=== PATIENT | male | born 1945 | race Caucasian/White ===

== ENCOUNTER → 2018-03-22 | Outpatient (CLI) | payer OTHER ==
[~2018-03-22] MED LIST: ALBU90OI; ALBU90OI INH; ALL DAY ALLERGY10 M1; AMLO10 PO; ASPI81CH; ATEN50 PO; ATOR20; CALCA500CH; CYCL10 PO; FURO40 PO; INSDET100; INSUASPI SC; LEVFLO500 PO; LOPE2C; LOSA50; Lamictal100 MG PO; Levothyroxine200 MCG; MAGNESIUM250 MG; METF500; NITR.6SL SL; OMEP20ER; POTA20PAC; Prozac20 MG; VITAMIN D-32000 UNI1
[2018-03-22 17:46] LABS: BASOPHILS ABSOLUTE AUTO 0.04 K/mm3 (0.00-0.23); BASOPHILS PERCENT AUTO 0 % (0-2); EOSINOPHILS ABSOLUTE AUTO 0.37 K/mm3 (0.00-0.68); EOSINOPHILS PERCENT AUTO 4 % (0-6); Hematocrit 39.7 % (37.0-53.0); Hemoglobin 12.6 g/dL (13.5-17.5); IMMATURE GRAN ABSOLUTE AUTO 0.02 K/mm3 (0.00-0.10); IMMATURE GRAN PERCENT AUTO 0 % (0-1); LYMPHOCYTES ABSOLUTE AUTO 1.98 K/mm3 (0.84-5.20); LYMPHOCYTES PERCENT AUTO 22 % (21-46); MONOCYTES ABSOLUTE AUTO 0.71 K/mm3 (0.16-1.47); MONOCYTES PERCENT AUTO 8 % (4-13); Mean Corpuscular HGB 32.3 pg (26.0-34.0); Mean Corpuscular HGB Conc 31.7 g/dL (31.5-36.5); Mean Corpuscular Volume 102 fL (80-100); NEUTROPHILS ABSOLUTE AUTO 6.05 K/mm3 (1.96-9.15); NEUTROPHILS PERCENT AUTO 66 % (41-73); Platelet Count 232 K/mm3 (150-400); RDW Coefficient Variation 13.6 % (11.7-14.2); RDW Standard Deviation 51.1 fL (35.1-46.3); White Blood Cell Count 9.17 K/mm3 (4.00-11.30)
[2018-03-22 18:08] LABS: Albumin, Blood 3.6 g/dL (3.4-5.0); Albumin/Globulin Ratio 0.8 (0.8-1.8); Bilirubin, Total 0.4 mg/dL (0.1-1.0); Bun/Creatinine Ratio 22.4 (12.0-20.0); Creatinine, Blood 1.47 mg/dL (0.60-1.20); Globulin, Blood 4.3 g/dL (2.2-4.0); Potassium, Blood 4.8 mmol/L (3.5-5.5); Thyroid Stimulating Hormone 0.406 uIU/mL (0.360-4.800); Total Protein, Blood 7.9 g/dL (6.4-8.2)
== END | disposition home or self-care (01) ==
LOC: LAB 09:40 → LAB SHORT 09:40
PROVIDERS: Nurse Practitioner Family
DX: E03.9 Hypothyroidism, unspecified (principal); I10 Essential (primary) hypertension
CPT/HCPCS: 80053; 84443; 85025

== ENCOUNTER → 2019-03-08 | Outpatient (CLI) | payer OTHER ==
[2019-03-08 12:07] LABS: Hematocrit 38.6 % (37.0-53.0); Hemoglobin 12.4 g/dL (13.5-17.5)
[2019-03-08 12:27] LABS: Albumin, Blood 3.5 g/dL (3.4-5.0); Anion Gap 1 mmol/L (6-16); Blood Urea Nitrogen 42 mg/dL (8-24); Bun/Creatinine Ratio 17.6 (12.0-20.0); CO2, Blood 28 mmol/L (21-32); Calcium, Blood 8.6 mg/dL (8.5-10.1); Chloride, Blood 114 mmol/L (98-108); Creatinine, Blood 2.38 mg/dL (0.60-1.20); Glomerular Filtration Rate 29 (60-); Glucose, Blood 112 mg/dL (70-99); Phosphorus, Blood 4.2 mg/dL (2.5-4.9); Sodium, Blood 143 mmol/L (136-145)
[2019-03-08 13:18] LABS: White Blood Cells, Urine 0-2 /hpf (0-5)
[2019-03-08 13:19] LABS: Bacteria Not Seen /hpf; Red Blood Cells, Urine 0-2 /hpf (0-2); Squamous Epithelial Cells Rare /hpf (Few)
[2019-03-08 13:33] LABS: Creatinine, Urine Random 58.5 mg/dL (27.00-270.00); Protein, Urine Random 91.7 mg/dL (0.0-11.9)
== END | disposition home or self-care (01) ==
LOC: EDSTATUS 09:11 → LAB 11:20 → LAB SHORT 11:20
PROVIDERS: Internal Medicine
DX: N18.3 Chronic kidney disease, stage 3 (moderate) (principal)
CPT/HCPCS: 36415; 80069; 81015; 82306; 82570; 83970; 84156; 85014; 85018

== ENCOUNTER 2019-10-28 11:36 | Inpatient (IN) | payer OTHER ==
[~2019-10-28] VITALS: Ht 167.6 cm; Wt 73.0 kg
[~2019-10-28 11:36] MED LIST changes: -LOSA50; +LOSA50 PO; -Prozac20 MG; +Prozac20 MG PO
[2019-10-28 12:19] LABS: BASOPHILS ABSOLUTE AUTO 0.06 K/mm3 (0.00-0.23); BASOPHILS PERCENT AUTO 0 % (0-2); EOSINOPHILS ABSOLUTE AUTO 0.28 K/mm3 (0.00-0.68); EOSINOPHILS PERCENT AUTO 2 % (0-6); Hematocrit 44.1 % (37.0-53.0); Hemoglobin 14.4 g/dL (13.5-17.5); IMMATURE GRAN ABSOLUTE AUTO 0.04 K/mm3 (0.00-0.10); IMMATURE GRAN PERCENT AUTO 0 % (0-1); LYMPHOCYTES PERCENT AUTO 22 % (21-46); MONOCYTES ABSOLUTE AUTO 0.74 K/mm3 (0.16-1.47); MONOCYTES PERCENT AUTO 5 % (4-13); Mean Corpuscular HGB 32.7 pg (26.0-34.0); Mean Corpuscular HGB Conc 32.7 g/dL (31.5-36.5); Mean Corpuscular Volume 100 fL (80-100); Mean Platelet Volume 11.4 fL (9.1-12.4); NEUTROPHILS ABSOLUTE AUTO 10.29 K/mm3 (1.96-9.15); NEUTROPHILS PERCENT AUTO 70 % (41-73); Platelet Count 243 K/mm3 (150-400); RDW Coefficient Variation 13.7 % (11.7-14.2); RDW Standard Deviation 50.6 fL (35.1-46.3); White Blood Cell Count 14.71 K/mm3 (4.00-11.30)
[2019-10-28] MEDS ORDERED: TAMS.4ER PO (12:41)
[2019-10-28] MEDS ORDERED: LAMO100 (12:41)
[2019-10-28] MEDS ORDERED: DULERA 200 MCG/13 GM INH (12:42)
[2019-10-28] MEDS ORDERED: SYNTHROID150 MCG PO (12:43)
[2019-10-28] MEDS ORDERED: NEBI10 PO (12:43)
[2019-10-28] MEDS ORDERED: ATEN100 PO (12:44)
[2019-10-28 13:04] LABS: Albumin, Blood 3.9 g/dL (3.4-5.0); Albumin/Globulin Ratio 0.8 (0.8-1.8); Bilirubin, Total 0.5 mg/dL (0.1-1.0); Bun/Creatinine Ratio 18.6 (12.0-20.0); Calcium, Blood 9.4 mg/dL (8.5-10.1); Creatinine, Blood 1.83 mg/dL (0.60-1.20); Globulin, Blood 4.6 g/dL (2.2-4.0); Total Protein, Blood 8.5 g/dL (6.4-8.2); Troponin I 0.191 ng/mL (0.000-0.040)
[2019-10-28 14:51] LABS: Magnesium, Blood 2.3 mg/dL (1.6-2.4)
[2019-10-28 14:52] LABS: Phosphorus, Blood 3.9 mg/dL (2.5-4.9); Thyroid Stimulating Hormone 1.98 uIU/mL (0.360-4.800)
[2019-10-28 15:48] LABS: Source, Urine Clean Catch
[2019-10-28 15:50] LABS: Appearance, Urine Clear (Clear); Bilirubin, Urine Neg (Neg); Blood, Urine 2+ (Neg); Color, Urine Yellow (P-Yellow); Glucose Qualitative, Urine Neg (Neg); Ketones, Urine Neg (Neg); Leukocyte Esterase, Urine Neg (Neg); Nitrite, Urine Neg (Neg); Protein, Urine 3+ (Neg); Urobilinogen, Urine NORM (Normal)
[2019-10-28 15:53] LABS: Glucose, Blood 207 mg/dL (70-99)
[2019-10-28 16:06] LABS: U Amphetamine Screen Not Detected; U Barbituate Screen Not Detected; U Benzodiazapine Screen Not Detected; U Buprenorphine Screen Not Detected; U Cannabinoids Screen DETECTED; U Cocaine Screen Not Detected; U Methadone Screen Not Detected; U Methamphetamine Screen Not Detected; U Opiates Screen Not Detected; U Oxycodone Screen Not Detected; U Propoxyphene Screen Not Detected
[2019-10-28 16:26] LABS: Bacteria Rare /hpf; Red Blood Cells, Urine 0-2 /hpf (0-2); Squamous Epithelial Cells Rare /hpf (Few); White Blood Cells, Urine 0-2 /hpf (0-5)
--- NOTE | 2019-10-29 05:05 | NUR ---
SHIFT SUMMARY PT A&O; FAMILY AT BEDSIDE START OF SHIFT; PT HAS BOUTS OF N/V; PROVIDER NOTIFIED @ 2310 NEW ORDER GIVEN FOR PHENEGRAN; REFER TO EMAR; PT SELF SUCTIONING; YELLOW LIQUID NOTED; PT CONVERTED TO NSR APPROXIMATELY @ 0145; HR 58-68 PER ELECTRICAL MAINTENANCE WORKER; ECG PERFORMED AT BEDSIDE THIS AM; STRIP PLACED IN FRONT OF CHART; DENIES CHEST PAIN/PRESSURE; VSS; O2 SATS >95 ON RA; WARM BLANKET BROUGHT TO PT; CALL LIGHT IN REACH; BED IN LOWEST POSITION; WILL CONTINUE TO MONITOR CLOSELY UNTIL HAND OFF TO DAY SHIFT RN.
[2019-10-29 05:32] LABS: BASOPHILS ABSOLUTE AUTO 0.01 K/mm3 (0.00-0.23); BASOPHILS PERCENT AUTO 0 % (0-2); EOSINOPHILS PERCENT AUTO 0 % (0-6); Hematocrit 37.8 % (37.0-53.0); Hemoglobin 12.5 g/dL (13.5-17.5); IMMATURE GRAN ABSOLUTE AUTO 0.05 K/mm3 (0.00-0.10); IMMATURE GRAN PERCENT AUTO 0 % (0-1); LYMPHOCYTES ABSOLUTE AUTO 1.53 K/mm3 (0.84-5.20); LYMPHOCYTES PERCENT AUTO 10 % (21-46); MONOCYTES ABSOLUTE AUTO 1.12 K/mm3 (0.16-1.47); MONOCYTES PERCENT AUTO 8 % (4-13); Mean Corpuscular HGB 32.9 pg (26.0-34.0); Mean Corpuscular HGB Conc 33.1 g/dL (31.5-36.5); Mean Corpuscular Volume 100 fL (80-100); Mean Platelet Volume 11.6 fL (9.1-12.4); NEUTROPHILS ABSOLUTE AUTO 12.01 K/mm3 (1.96-9.15); NEUTROPHILS PERCENT AUTO 82 % (41-73); Platelet Count 216 K/mm3 (150-400); RDW Coefficient Variation 13.6 % (11.7-14.2); RDW Standard Deviation 50.1 fL (35.1-46.3); White Blood Cell Count 14.72 K/mm3 (4.00-11.30)
[2019-10-29 05:52] LABS: Alanine Aminotransfer (ALT/SGP 15 U/L (12-78); Albumin/Globulin Ratio 0.8 (0.8-1.8); Alk Phos 89 U/L (50-136); Anion Gap 8 mmol/L (6-16); Aspartate Aminotrans (AST/SGOT 97 U/L (12-37); Bilirubin, Total 0.3 mg/dL (0.1-1.0); Blood Urea Nitrogen 29 mg/dL (8-24); Bun/Creatinine Ratio 16.5 (12.0-20.0); CHOL/HDL RATIO 3.8; CO2, Blood 24 mmol/L (21-32); Calcium, Blood 8.4 mg/dL (8.5-10.1); Chloride, Blood 112 mmol/L (98-108); Cholesterol 190 mg/dL (50-200); Creatinine, Blood 1.76 mg/dL (0.60-1.20); Glomerular Filtration Rate 40 (60-); Glucose, Blood 130 mg/dL (70-99); HDL Cholesterol 50 mg/dL (>39); LDL/HDL RATIO 2.5; Low Density Lipoprotein Chol 125 mg/dL (0-110); Potassium, Blood 4.4 mmol/L (3.5-5.5); Sodium, Blood 144 mmol/L (136-145); Triglycerides 73 mg/dL (30-160); Very Low Density Lipoprot Chol 14 mg/dL (6-32)
--- NOTE | 2019-10-29 06:28 | NUR ---
UPDATE TROPONIN 18.8 W/ AM LABS; DR. GRANT NOTIFIED OF INCREASE; CARDIOLOGY CONSULT IN FOR AM; NO NEW ORDERS
--- NOTE | 2019-10-29 11:58 | NUR ---
Echocardiogram completed.
--- NOTE | 2019-10-29 12:49 | NUR ---
Spiritual care visit conducted. Upon receiving a spiritual care referral, I visit patient. Patient is lying in bed with his back toward the door and never turns towards me. Patient's dauther, Ele, is bedside. She tells me that patient is an atheist and very hostile toward scientologist and spiritual beliefs. She has no idea why there was a spiritual care referral. Ele expresses her desire that I would continue to pray for the patient but at a distance. I state that I will and that I will pray for her as well. Ele shares with me about patient medical history, about her truong and about the work schedule they are juggling to try to be there for the patient. I listen empathically and provide a calming presence. Ele responds well and shows signs of an elevated mood. I will continue to remain available to patient and family.
--- NOTE | 2019-10-29 18:10 | NUR ---
DR BABB NOTIFIED OF CRITICAL TROPONIN OF 66.7. INSTRUCTED TO D/C ANY FURTHER TROPONINS. CONFIRMED THERE WERE NO MORE TROPONIN LEVELS.
--- NOTE | 2019-10-29 18:33 | NUR ---
SHIFT SUMMARY PT IS ALERT AND ORIENTX4, AWARE OF DIAGNOSES OF CVA. PT STILL REPORTS DOUBLE VISION AND IS SENSITIVE TO MOVEMENT WHICH MAKES HIM NAUSEATED. NO VOMITING THIS SHIFT. SPEECH THERAPY EVALUATED PT AND RECOMMENDS STRICT NPO, INCLUDING MEDS AND PLANS A BARIUM SWALLOW STUDY TO BE DONE TOMORROW. ORAL/SUCTION CATH CARE PROVIDED TO PT FOR COMFORT. TELEMETERY SHOWS PT TO BE SINUS RHYTHM WITH FREQ PAC'S. PT HAS BEEN HYPERTENSIVE IN THE 170'S. LUNGS HAVE BECOME MORE COARSE, MD AWARE, IV ABX STARTED TODAY FOR ASPIRATION PNA. PT IS ABLE TO ASSIST IN SELF SUCTIONING OF ORAL SECRETIONS. PT DECLINES ANY CP CURRENTLY. LATEST TROPONIN IS 66.7. DR BABB NOTIFIED OF RESULTS AND DOESN'T PLAN ON ANY INTERVENTIONS DUE TO PT'S CVA AND REQUESTS NO FURTHER TROPONINS BE CHECKED.
--- NOTE | 2019-10-29 18:37 | NUR ---
PERMISSION FOR CARE PT'S DAUGHTER SAROJ GAVE CONSENT FOR THIS STUDENT NURSE TO PROVIDE CARE 10/30/19
--- NOTE | 2019-10-29 19:30 | NUR ---
RECEIVED REPORT FROM CELI HARO. ASSUMED CARE OF PT. IN NO ACUTE DISTRESS AT THIS TIME, RESTING COMFORTABLY. DENIES NAUSEA AT THIS TIME. CALL LIGHT AND POSSESSIONS IN REACH, BED IN LOW POSITION WITH BED ALARM ACTIVATED. FAMILY AT THE BEDSIDE. WILL CONTINUE TO MONITOR.
--- NOTE | 2019-10-29 21:25 | NUR ---
CALLED DR. VALLE REGARDING PT'S ELEVATED BP. NO NEW ORDERS RECEIVED AT THIS TIME. WILL CONTINUE TO MONITOR AND REASSESS.
[2019-10-30 03:58] LABS: BASOPHILS ABSOLUTE AUTO 0.02 K/mm3 (0.00-0.23); BASOPHILS PERCENT AUTO 0 % (0-2); EOSINOPHILS PERCENT AUTO 0 % (0-6); Hemoglobin 12.7 g/dL (13.5-17.5); IMMATURE GRAN ABSOLUTE AUTO 0.09 K/mm3 (0.00-0.10); IMMATURE GRAN PERCENT AUTO 1 % (0-1); LYMPHOCYTES ABSOLUTE AUTO 1.48 K/mm3 (0.84-5.20); LYMPHOCYTES PERCENT AUTO 8 % (21-46); MONOCYTES ABSOLUTE AUTO 1.48 K/mm3 (0.16-1.47); MONOCYTES PERCENT AUTO 8 % (4-13); Mean Corpuscular HGB 32.5 pg (26.0-34.0); Mean Corpuscular HGB Conc 31.8 g/dL (31.5-36.5); Mean Corpuscular Volume 102 fL (80-100); NEUTROPHILS ABSOLUTE AUTO 15.05 K/mm3 (1.96-9.15); NEUTROPHILS PERCENT AUTO 83 % (41-73); Platelet Count 201 K/mm3 (150-400); RDW Coefficient Variation 14.1 % (11.7-14.2); RDW Standard Deviation 53.9 fL (35.1-46.3); Red Blood Cell Count 3.91 M/mm3 (4.30-5.90); White Blood Cell Count 18.12 K/mm3 (4.00-11.30)
[2019-10-30 04:15] LABS: Bun/Creatinine Ratio 16.7 (12.0-20.0); Calcium, Blood 8.2 mg/dL (8.5-10.1); Creatinine, Blood 1.8 mg/dL (0.60-1.20); Potassium, Blood 4.4 mmol/L (3.5-5.5)
--- NOTE | 2019-10-30 06:45 | NUR ---
SHIFT SUMMARY PT RESTING IN BED COMFORTABLY, IN NO ACUTE DISTRESS. WAS MONITORED EVERY 1-2 HOURS WITH NEEDS MET. DENIES ANY NEEDS AT THIS TIME. VS STABLE, NO C/O N/V, CONTINUES SELF-SUCTIONING APPROPRIATELY. CALL LIGHT AND POSSESSIONS IN REACH, BED IN LOW POSITION WITH BED ALARM ACTIVATED. FAMILY AT THE BEDSIDE. WILL CONTINUE TO MONITOR UNTIL HANDOFF GIVEN TO ONCOMING RN.
--- NOTE | 2019-10-30 19:42 | NUR ---
SHIFT SUMMARY PT A&Ox3; RIGHT SIDED WEAKNESS; DISCOORDINATION TO LEFT SIDE; [place]; DOUBLE VISION, EYE PATCH PROVIDED. PT REPROTS KURTZ THIS AM; MEDICATED x1 WITH TYLENOL WITH POSITIVE RESULTS. PT REPORT NAUSEA THIS AM AFTER THERAPY; MEDICATED x1 WITH ZOFRAN WITH POSTIIVE RERPOTS. PT SOB AT REST; AUDIBLE WHEEZES NOTED; PT 3L OVER ON I&O, DR QUIJANO NOTIFIED; NEW ORDERS ENTERED; LASIX IV ADMINISTERED. PT DENIES CHEST PAIN/PRESSURE OR DIZZINESS/LIGHTHEADEDNESS. STRICT NPO; BARRIUM SWALLOW EVAL COMPLETED. GI CONSULTED FOR PEG TUBE PLACEMENT, PLANS TO SEE TOMORROW. PT CONVERTED FROM SR TO AFIB; DR QUIJANO NOTIFIED, NEW ORDER FOR LOPRESSOR IV, ADMINSITERED WITH NO CHANGES IN HR; DR QUIJANO NOTIFIED NEW ORDERS FOR CARDIZEM GTT; STARTED AT 5ML/HR AND TITRATED TO 10 ML/HR WITH POSTIIVE RESULTS. ELEVATED BP NOTED, DR QUIJANO AWARE. OTHER VSS. NO OTHER ACUTE CHANGES NOTED. REPORT GIVEN TO ONCOMING RN.
--- NOTE | 2019-10-31 02:53 | NUR ---
ASSUMED CARE AT 1900. TALKING CONSTANTLY W/ FAMILY. VERY CONVERSIVE AND INTERACTIVE. MUCH EFFORT TO SPEAK CLEARLY , BUT VERY SLURRED / GARBLED. GERERAL BODY WEAKNESS BUT W/ NEURO CHECK LT ARM WEAKER. EYE PATCH WORN LT EYE.CARDIZEM REDUCED AT 193 FROM 10 MG - 5 MG . HR AVERAGE 90-110. AWARE OF NPO WHEN REQUESTING FLEXERIL FOR NECK SPASMS.TYLENOL ACCEPTED. FREQ FALLS OFF TO SLEEP AND CYCLIC BREATHING PRESENTS RQAPID WHEEZING SOUND THEN SOFTER QUIET BREATHING. APPEARS TO FORCE THIS TYPE OF BREATHING BUT VERY SPONTANEOUS PT IS ASLEEP. ALWAYS MOUTH BREATHING WHEN ASLEEP. CHANGED TO HIGH FLOW O2 BEFORE MIDNOC AND 6 L ADEQUATE FLOW . MOUTH CARE . NO GI DISTRESS. TURNED Q 2 HR. SUCTIONS SELF FREQ . SCANTY AMT MENG COLOR/ THICK. WILL TURN TO 7L AT THIS TIME WITH SO MUCH MOUTH BREATHIG
[2019-10-31 05:57] LABS: Triglycerides 119 mg/dL (30-160)
--- NOTE | 2019-10-31 06:00 | NUR ---
SHIFT SUMMARY. SAME ABOVE. PERIODS OF REST BUT W/CYCLIC BREATHING AND SHALLOW PERIODS PER HX OF SLEEP APNEA .COUGHING EFFORT W/ A LOT OF WHEEZING. AND NOISY BREATHING/ AND COUGH SEEMS STRONG.ANXIOUS TO GET A FLEXERIL. FAMILY AND PT AWARE OF PEG TUBE NEED AND AGREE.AF 90-118 AVERAGE ON 5 MG
--- NOTE | 2019-10-31 08:20 | NUR ---
ASSUMPTION OF CARE RECEIVED REPORT FROM CELI JULIEN AT 0705. PT AAOX3 RESTING IN BED, BREATHING MILDLY LABORED, SOB AT REST; PT CURRENTLY ON HI FLOW NC @ 7LPM, MAINTAINING PULSE OX AROUND 91%. 20MG IVP LASIX ADMINISTERED. CARDIZEM GTT CONTINUS TO INFUSE @ 5MG/HR, HR MAINTAINING AFIB 110S. FAMILY AT BEDSIDE & UPDATED ON PLAN OF CARE. WILL CONSULT WITH MD ABOUT WORSENING RESPIRATORY STATUS & CONTINUE TO MONITOR PT CLOSELY.
--- NOTE | 2019-10-31 08:48 | NUR ---
DR. QUIJANO ON FLOOR AT BEDSIDE. DISCUSSED PT'S WORSENING RESPIRATORY STATUS; COARSE LUNG SOUNDS AND AUDIBLE WHEEZING NOTED ALONG WITH DYSPNEA AT REST. OXYGEN THERAPY WAS INCREASED FROM 5L NC TO 7L HIFLOW NC OVERNIGHT; PULSE OX CURRENTY MAINTAINING 91-92%. RECEIVED NEW ORDERS FOR CXR & NEBULIZER TX. SUGGESTED ADDITION OF STEROIDS; DR. QUIJANO STATES HE WILL REVIST POSSIBLY ADDING STEROIDS AFTER REASSESMENT. WILL CONTINUE TO MONITOR.
--- NOTE | 2019-10-31 12:15 | NUR ---
SPOKE WITH DR. QUIJANO ON FLOOR. MADE MD AWARE THAT PT'S RESPIRATORY STATUS HAS NOT IMPROVED; PT STIL EXHIBITS SOB AT REST, TACHYPNEA, & COARSE WHEEZES THROUGHOUT ALL LUNG MORAN. MD REVIEWED CXR. NO FUTHER ORDERS RECEIVED AT THIS TIME. WILL CONTINUE TO MONITOR.
--- NOTE | 2019-10-31 17:15 | NUR ---
HR AVERAGING AFIB 120-130S. CARDIZEM GTT INCREASED FROM 5ML/HR TO 10ML/HR. WILL CONTINUE TO MONITOR.
--- NOTE | 2019-10-31 17:28 | NUR ---
SHIFT SUMMARY PT AAOX3. NO CHANGE IN NEURO ASSESSMENT THROUGHOUT SHIFT, EYE PATCH REMAINS IN PLACE. PT C/O NAUSEA X1, ZOFRAN ADMINISTERED WITH POSITIVE RELIEF. RESPIRATORY STATUS REMAINS POOR WITH LABORED/NOISY BREATHING. REPEAT CXR TODAY IS WORSE FROM PRIOR; DR. QUIJANO STATES PT IS LIKELY ASPIRATING ON SECRETIONS; NO NEW ORDERS RECEIVED FROM PRIOR. HOB REMAINED ELEVATED THROUGHOUT SHIFT, MOUTH CARE PROVIDED Q4H, & PT FREQUENTLY SELF SUCTIONED. GI IS HOLDING OFF ON PEG TUBE PLACEMENT UNTIL RESPIRATORY STATUS IMPROVES. HR DID BEGIN TO AVERAGE AFIB 120-130S, CARDIZEM GTT NOW INFUSING @ 10ML/HR. PT C/O SOB ON & OFF, DENIED ANY CHEST PAIN/PRESSURE, PALPITATIONS, OR DIZZINESS. WILL CONTINUE TO MONITOR UNTIL REPORT GIVEN TO MANAGER FASHION RN.
--- NOTE | 2019-10-31 21:50 | NUR ---
ASSUMED CARE OF PATIENT AT APPROXIMATELY 1900 FROM NATHAN Santa RN. PATIENT ALERT AND ORIENTED; DROWSY AT TIMES. PATIENT REPORTS CHRONIC BACK PAIN THAT IS TOLERABLE AT TIMES TIMES. PATIENT DENIES NUMNBESS, TINGLING, DIZZINESS AND NAUSEA. PATIENT IS NPO; CLINIMIX INFUSING PER ORDER. PATIENT HAS EYE PATCH ON AT TIMES FOR "DOUBLE VISION". COARSE CRACKLES FOR LUNG SOUNDS; AUDIBLE WHEEZES FROM HALLWAY AT TIMES; PATIENT SELF SUCTIONS; REFUSES TO HAVE HOB HIGH DUE TO BACK. AFIB ON TELE; RATE OF 120 AVERAGE; CARDIZEM AT 10MLS/HR. HOLDING ALL PO MEDS DUE TO ASPIRATION RISK. OXYGEN SATURATION ABOVE 90% ON 7LPM VIA HF NC. MEPILEX TO COCCYX FOR REDNESS; ENCOURAGE Q2H TURNS. PATIENT CURRENTLY RESTING IN BED; CALL LIGHT IN REACH; BED IN LOWEST POSISTION; BED ALARM ON; WILL CONTINUE TO MONITOR AND ASSESS UNTIL END OF SHIFT.
--- NOTE | 2019-10-31 23:52 | NUR ---
CALLED DR. BAIRES TO REQUEST PATIENT'S REQUEST FOR SLEEP AID TONIGHT; ONE TIME DOSE ORDERED. WILL CONTINUE TO MONITOR AND ASSESS UNTIL END OF SHIFT.
[2019-11-01 04:18] LABS: BASOPHILS ABSOLUTE AUTO 0.04 K/mm3 (0.00-0.23); BASOPHILS PERCENT AUTO 0 % (0-2); EOSINOPHILS PERCENT AUTO 0 % (0-6); Hematocrit 38.4 % (37.0-53.0); IMMATURE GRAN ABSOLUTE AUTO 0.19 K/mm3 (0.00-0.10); IMMATURE GRAN PERCENT AUTO 1 % (0-1); LYMPHOCYTES ABSOLUTE AUTO 1.19 K/mm3 (0.84-5.20); LYMPHOCYTES PERCENT AUTO 7 % (21-46); MONOCYTES ABSOLUTE AUTO 1.48 K/mm3 (0.16-1.47); MONOCYTES PERCENT AUTO 9 % (4-13); Mean Corpuscular HGB Conc 31.3 g/dL (31.5-36.5); Mean Platelet Volume 12.5 fL (9.1-12.4); NEUTROPHILS ABSOLUTE AUTO 14.19 K/mm3 (1.96-9.15); NEUTROPHILS PERCENT AUTO 83 % (41-73); Platelet Count 170 K/mm3 (150-400); RDW Coefficient Variation 14.4 % (11.7-14.2); RDW Standard Deviation 56.8 fL (35.1-46.3); Red Blood Cell Count 3.64 M/mm3 (4.30-5.90); White Blood Cell Count 17.09 K/mm3 (4.00-11.30)
[2019-11-01 04:21] LABS: Mean Corpuscular Volume 106 fL (80-100)
[2019-11-01 04:35] LABS: Anion Gap 6 mmol/L (6-16); Blood Urea Nitrogen 68 mg/dL (8-24); CO2, Blood 24 mmol/L (21-32); Calcium, Blood 8.3 mg/dL (8.5-10.1); Chloride, Blood 115 mmol/L (98-108); Creatinine, Blood 1.79 mg/dL (0.60-1.20); Glomerular Filtration Rate 40 (60-); Glucose, Blood 203 mg/dL (70-99); Magnesium, Blood 2.4 mg/dL (1.6-2.4); Phosphorus, Blood 4.8 mg/dL (2.5-4.9); Potassium, Blood 4.5 mmol/L (3.5-5.5); Sodium, Blood 145 mmol/L (136-145); Triglycerides 83 mg/dL (30-160)
--- NOTE | 2019-11-01 06:43 | NUR ---
PATIENT SLEPT ABOUT SIX HOUR TOTAL; OXYGEN SATURATION ABOVE 90% ON 11-5LPM VIA HF NC. PATIENT DAUGHTER VISITED AND SON IN LAW. NO CHANGE IN HR. WILL CONTINUE TO MONITOR AND ASSESS UNTIL END OF SHIFT.
--- NOTE | 2019-11-01 15:00 | NUR ---
CARDIZEM DRIP STOPPED AT THIS TIME PT HAS NOW CONVERTED TO SINUS RHYTHM OF 69.
--- NOTE | 2019-11-01 16:21 | NUR ---
Arrived to Pt's room due to BUNCHER MACHINE being initiated. Pt upon arrival. Pt's daughter Ele arrives and this RN, Dr Sinclair, and Slubber Frame Changer Bronwyn offer emotional support. Palliative Care will remain available.
--- NOTE | 2019-11-01 16:26 | NUR ---
AT 1600 THIS RN, NURA RN AND SLIP SEAT COVERER NOTED THAT PT BEGAN TO CYNTHIA DOWN, THIS RN AND NURA RN IMMEDIATELY TO ROOM, PT NOTED TO HAVE APNEA, THIS RN COULD NOT PALPATE RADIAL PULSE NURA RN CALLED RAPID RESPONSE. INDUSTRIAL HEALTH AND SAFETY PROFESSOR FROM ICU TO UNIT ALSO COULD NOT PALPATE PULSE, NO APICAL PULSE NOTED. DR QUIJANO TO ROOM ALSO DID NOT NOTE AN APICAL PULSE. TIME OF WAS CALLED BY DR QUIJANO AT 1604. FAMILY ARRIVED IMMEDIATELY AFTER TIME OF WAS CALLED, DAUGHTER SAROJ IS CALLING FAMILY
--- NOTE | 2019-11-01 17:59 | NUR ---
Initial spiritual care note: Present with dtr, Martha and provided gentle bereavement career counselor. Pt and family non-anglican, but Martha appeared to appreciaite theraputic listening and emotional affirmation. More family arrived. Facilitated conversation regarding pt's legacy and gratitude for his love for family. Pt passed peacefully. He had informed family earilier today that he was ready to . This is a yaakov family who responded well to career counselor/support. [facility] has been selected for arrangements.
== END 2019-11-01 22:46 | DRG 64 ==
LOC: ER 11:36 → PCU 16:55
PROVIDERS: Emergency Medicine; Hospitalist; Nurse Practitioner Acute Care; ADMIT Internal Medicine
DX: I63.9 Cerebral infarction, unspecified (principal); I21.4 Non-ST elevation (NSTEMI) myocardial infarction; J69.0 Pneumonitis due to inhalation of food and vomit; J96.01 Acute respiratory failure with hypoxia; I48.92 Unspecified atrial flutter; R13.10 Dysphagia, unspecified; I25.10 Atherosclerotic heart disease of native coronary artery without angina pectoris; N18.3 Chronic kidney disease, stage 3 (moderate); I12.9 Hypertensive chronic kidney disease with stage 1 through stage 4 chronic kidney disease, or unspecified chronic kidney disease; Z95.1 Presence of aortocoronary bypass graft; I48.0 Paroxysmal atrial fibrillation; E11.22 Type 2 diabetes mellitus with diabetic chronic kidney disease; Z66 Do not resuscitate; R47.81 Slurred speech; R53.1 Weakness; F17.210 Nicotine dependence, cigarettes, uncomplicated
CPT/HCPCS: 36415; 51702; 70450; 70496; 70551; 71045; 71046; 74230; 80048; 80053; 80061; 81001; 82947; 83036; 83605; 83735; 83880; 84100; 84145; 84443; 84478; 84484; 85025; 85730; 87040; 92526; 92610; 92611; 93005; 93010; 93306; 93880; 94640; 94760; 94762; 96365-59; 96366-59; 96375-59; 96376-59; 97112; 97162; 97166; 97530; 99285-25; A9270-GY; J0696; J1200; J1644; J1940; J2405; J2550; J2765; J7030; Q9967